=== PATIENT | male | born 1995 | race Hispanic/Latino ===

== ENCOUNTER 2017-12-26 01:40 | Emergency (ER) | payer MEDICAID, OTHER ==
[2017-12-26] MEDS ORDERED: ONDANSETRON ODT 4 MG TAB ONE (02:18)
[2017-12-26] MEDS ORDERED: LEVOFLOXACIN 500 MG TABLET ONE (03:32)
== END 2017-12-26 03:37 | disposition home or self-care (01) ==
LOC: EDH 01:40
DX: A09 Infectious gastroenteritis and colitis, unspecified (principal)
CPT/HCPCS: 82270; 87046; 87205